=== PATIENT | female | born 1950 | race Caucasian/White ===

== ENCOUNTER 2020-02-21 09:47 | Day surgery (SDC) | payer MEDICARE, BC, OTHER ==
[~2020-02-21 09:47] MED LIST: Lidocaine 1%/Sod Bicarbonate in NS 8.4% 1 ML Syringe IDERM PRN; Sodium Chloride 0.9% 10 ML Syringe FLUSH PRN
[2020-02-21] MEDS: Lactated Ringers 1,000 ML IV SCH ×2 (09:50→20:06)
[2020-02-21] MEDS ORDERED: Scopolamine 1.5 MG Transdermal Patch TRDERM PRN (10:11)
[2020-02-21] MEDS ORDERED: Bupivacaine 0.5%/EPINEPHrine 1:200,000 50 ML MDV ONE (10:12)
[2020-02-21] MEDS ORDERED: Lidocaine 1% with EPINEPHrine 1:100,000 20 ML MDV ONE (10:12)
--- NOTE | 2020-02-21 10:18 | PCM.PREANE ---
Preanesthetic Assessment - Anesthesia/Transfusion/Family Hx Anesthesia History: Prior Anesthesia Reaction Type of Anesthesia Reaction: Other (see below) (PONV) Family History of Anesthesia Reaction: No Transfusion History: No Prior Transfusion(s) - Review of Systems General: No Symptoms Pulmonary: Shortness of Breath Cardiovascular: No Symptoms Gastrointestinal: No Symptoms Neurological: Headache Other: Reports: None - Physical Assessment NPO Status Date: 02/20/20 NPO Status Time: 23:30 Vital Signs: Last Vital Signs Temp 36.4 C 02/21/20 09:45 Pulse 63 02/21/20 09:45 Resp 16 02/21/20 09:45 BP 139/72 02/21/20 09:45 Pulse Ox 94 L 02/21/20 09:45 Height: 1.55 m Weight: 83.007 kg ASA Class: 2 Airway Class: Mallampati = 3 Dentition: Reports: Normal Dentition, Partial (upper) Thyro-Mental Finger Breadths: 2 Mouth Opening Finger Breadths: 3 ROM/Head Extension: Full Lungs: Clear to Auscultation, Normal Respiratory Effort Cardiovascular: Regular Rate, Regular Rhythm - Lab Values: Laboratory Last Values COVID-19 PCR Not detected (NOT DETECT) 02/19/20 13:15 - Allergies Allergies/Adverse Reactions: Allergies Allergy/AdvReac Type Severity Reaction Status Date / Time hydrocodone Allergy Cannot Verified 02/21/20 10:12 Remember Latex, Natural Rubber Allergy Itching Verified 02/21/20 10:12 codeine AdvReac Vomiting Verified 02/21/20 10:12 fluvastatin sodium AdvReac Nausea Verified 02/21/20 10:12 [From Lescol] - Acknowledgements Anesthesia Type Planned: General Anesthesia Pt an Appropriate Candidate for the Planned Anesthesia: Yes Alternatives and Risks of Anesthesia Discussed w Pt/Guardian: Yes Pt/Guardian Understands and Agrees with Anesthesia Plan: Yes PreAnesthesia Questionnaire HEENT History: Reports: Other (See Below) Other HEENT History: larygoscopy with dilation, wears glasses Cardiovascular History: Reports: High Cholesterol Respiratory History: Reports: Asthma, SOB, Other (See Below) Other Respiratory History: right lung nodule Gastrointestinal History: Reports: GERD Genitourinary History: Reports: Other (See Below) Other Genitourinary History: stress urinary incontinence 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: Other (See Below) Other OB/BYN History: uterine fibroid, thickened endometrium Musculoskeletal History: Reports: Other (See Below) Other Musculoskeletal History: IT band syndrome to left Neurological History: Reports: Other (See Below) Other Neuro History: memory impairment, tremor Psychiatric History: Reports: Depression Endocrine/Metabolic History: Reports: Other (See Below) Other Endocrine/Metabolic History: thyroid nodule, goiter, thyroid biopsy Hematologic History: Reports: None Immunologic History: Reports: None Oncologic (Cancer) History: Reports: None - Past Surgical History Head Surgeries/Procedures: Reports: None HEENT Surgical History: Reports: Adenoidectomy, Tonsillectomy Cardiovascular Surgical History: Reports: None Respiratory Surgical History: Reports: None GI Surgical History: Reports: Appendectomy, Colonoscopy, EGD Female Surgical History: Reports: D&C, Tubal Ligation, Other (See Below) Other Female Surgeries/Procedures: laparoscopy Endocrine Surgical History: Reports: None Neurological Surgical History: Reports: None Oncologic Surgical History: Reports: None Dermatological Surgical History: Reports: Other (See Below) - SUBSTANCE USE Smoking Status *Q: Former Smoker Recreational Drug Use History: No - HOME MEDS Home Medications: Home Meds Bilberry Fruit Extract [Bilberry Extract] 60 mg PO DAILY 11/17/14 [History] Calcium Carbonate [Calcium] 1 tab PO BID 11/17/14 [History] Cetirizine [ZyrTEC] 10 mg PO QPM PRN 11/17/14 [History] Fish Oil/[place]-3 Fatty Acids [Fish Oil] 1 each PO BID 11/17/14 [History] Flaxseed Oil [Flaxseed] 1,000 mg PO BID 11/17/14 [History] Melatonin 1 mg PO QPM 11/17/14 [History] Multivitamin with Minerals [Multiple Vitamin] 1 tab PO BID 11/17/14 [History] Ubidecarenone [Co Q-10 ER] 1 tab PO DAILY 11/17/14 [History] atorvaSTATin [Lipitor] 20 mg PO BEDTIME 11/17/14 [History] Albuterol [Proair HFA] 1 - 2 puff INH Q4H PRN 02/20/20 [History] Cholecalciferol (Vitamin D3) [Vitamin D3] 2,000 unit PO DAILY 02/20/20 [History] FLUoxetine [PROzac] 40 mg PO QAM 02/20/20 [History] Menthol/Zinc Oxide [Calmoseptine] 1 dose TOP BID PRN 02/20/20 [History] Omeprazole Magnesium [Prilosec Otc] 20 mg PO DAILY 02/20/20 [History] - CURRENT (IN HOUSE) MEDS Current Meds: Current Medications Lactated Ringer's (Ringers, Lactated) 1,000 mls @ 125 mls/hr IV ASDIRECTED ROBERT Stop: 02/21/20 23:00 Last Admin: 02/21/20 09:50 Dose: 125 mls/hr Documented by: Lidocaine/Sodium Bicarbonate (Buffered Lidocaine 1% In Ns 8.4%) 0.25 ml IDERM ONETIME PRN PRN Reason: Prior to IV Start Stop: 02/21/20 18:00 Last Admin: 02/21/20 09:50 Dose: 0.25 ml Documented by: Scopolamine (Transderm-Scop) 1.5 mg TRDERM Q72H PRN PRN Reason: Nausea Sodium Chloride (Saline Flush) 10 ml FLUSH ASDIRECTED PRN PRN Reason: Keep Vein Open Stop: 02/21/20 18:00
[2020-02-21] MEDS ORDERED: Rocuronium 50 MG/5 ML Vial ONE (10:30)
[2020-02-21] MEDS ORDERED: Propofol 200 MG/20 ML SDV ONE (10:31)
[2020-02-21] MEDS ORDERED: Midazolam 1 MG/ML 2 ML SDV ONE (10:31)
[2020-02-21] MEDS ORDERED: fentaNYL 250 MCG/5 ML SDV ONE (10:31)
[2020-02-21] MEDS ORDERED: Succinylcholine/Sod PF 100 MG/5 ML SYRINGE IV ONE (10:39)
[2020-02-21] MEDS ORDERED: ceFAZolin 1 GM Vial ONE (11:24)
[2020-02-21] MEDS ORDERED: Ondansetron 4 MG/2 ML SDV ONE (11:34)
[2020-02-21] MEDS ORDERED: HYDROmorphone 0.5 MG/0.5 ML Syringe IVPUSH PRN (11:49)
[2020-02-21] MEDS ORDERED: fentaNYL 100 MCG/2 ML SDV IVPUSH PRN (11:49)
[2020-02-21] MEDS ORDERED: Ketorolac 15 MG/ML SDV ONE (12:05)
--- NOTE | 2020-02-21 12:12 | PCM.OPNOTE ---
- General Post-Op/Procedure Note Date of Surgery/Procedure: 02/21/20 Operative Procedure(s): Laparoscopic cholecystectomy Findings: normal gallbladder anatomy Pre Op Diagnosis: Symptomatic cholelithiasis Post-Op Diagnosis: Same Anesthesia Technique: General ET Tube Primary Surgeon: Cecelia Sandra Anesthesia Provider: Feliz Trinidad Pathology: Gallbladder with contents Fluid Replacement, Intraop: 1,600 Output, Urine Amount: 0 EBL in mLs: 5 Complications: None apparent Condition: Good
--- NOTE | 2020-02-21 12:17 | PCM.PRNOTE ---
- Free Text/Narrative Note: OPERATIVE REPORT Date of Surgery/Procedure: February 21, 2020 Operative Procedure(s): laparoscopic cholecystectomy Findings: Normal gallbladder anatomy Pre Op Diagnosis: Symptomatic cholelithiasis Post-Op Diagnosis: Same Anesthesia Technique: General ET Tube Primary Surgeon: Cecelia Sandra MD Anesthesia Provider: Feliz Trinidad CRNA Pathology: Gallbladder with contents Fluid Replacement, Intraop: 1600cc Output, Urine Amount: 0cc EBL: 5cc Drain/Tube Comments: None Indication for the procedure: The patient is a 69-year-old lady who presented to my office with symptoms of cholelithiasis. The patient was counseled for laparoscopic cholecystectomy, with possible conversion to open. After discussion of the risks of infection, bleeding and injury to the bile duct as well as increased complication from previous intra-abdominal surgery, the patient's consent was obtained. Description of the procedure: The patient presented to the outpatient holding area on the day of the procedure. The history and physical were verified and consent was present and on the chart. The patient was taken back to the operating room and placed in supine position on the operating table. SCD boots were placed and functional prior to the start of the procedure. Preoperative antibiotics were administered according to SCIP protocol, Ancef 2 g IV. A surgical timeout was performed. The patient then had induction of general anesthesia and was intubated without difficulty. The patient was prepped and draped in standard surgical fashion. We began by making an infraumbilical vertical incision and deepened this down through subcutaneous fat to the level of the fascia. This was grasped and incised. We bluntly entered through the peritoneum and a finger sweep was done. A stay suture of 0 Vicryl was placed in the fascia. The 12 mm balloon Guy port was then inserted into the abdomen and the balloon inflated. Insufflation was attached and we had appropriate opening pressures. The abdomen was then insufflated to 15 mmHg. We inserted a scope into the abdomen and inspected the area where we had entered. There was no evidence of injury to surrounding structures with no evidence of bile or bleeding. A TAP block was then performed using 1% lidocaine with epinephrine mixed with 0.5% bupivacaine with epinephrine. The patient was then positioned with head up and right side up to facilitate exposure of the gallbladder. We then proceeded with placing our additional ports. A 5mm port was placed in the epigastric region. Two additional 5mm ports placed under direct visualization in the right upper quadrant. Once we had sufficiently exposed the dome of the gallbladder. This was grasped and retracted cephalad. We proceeded with our dissection to expose the cystic duct and cystic artery. We did have a critical view. The cystic duct and artery were then clipped and cut using endoscopic scissors. We then proceeded to fully dissect the gallbladder off of the cystic plate using the Bovie device. The gallbladder was then placed in the Endo Catch bag and withdrawn towards the umbilical port. We then inspected the area of the dissection. A Ray-Jihan was inserted and the small amount of blood from dissection was blotted up. This was then promptly removed. There was no significant bleeding and hemostasis was achieved. We then desufflated the abdomen. The ports were then removed. The gallbladder was withdrawn through the umbilical port site. We then proceeded to close the umbilical port site using an 0 Vicryl stitch. We had good closure of the fascia. A superficial 4-0 monocryl suture was used to approximate the skin. The skin was covered with Dermabond surgical glue. The patient tolerated the procedure well and was extubated without difficulty. He was transported to the PACU in stable condition. All sponge, needle counts correct. I was scrubbed and actively participated in the entire procedure. No immediate complications noted. Complications: None apparent Condition: Good Cecelia Sandra MD General Surgery
--- NOTE | 2020-02-21 12:30 | PCM.POSTAN ---
POST ANESTHESIA ASSESSMENT - MENTAL STATUS Mental Status: Oriented, Somnolent - VITAL SIGNS Vital Signs: Last Vital Signs Temp 97 F 02/21/20 12:18 Pulse 63 02/21/20 09:45 Resp 21 H 02/21/20 12:18 BP 117/49 L 02/21/20 12:18 Pulse Ox 92 L 02/21/20 12:18 - RESPIRATORY Respiratory Status: Respiratory Rate WNL, Airway Patent, O2 Saturation Stable, Supplemental Oxygen - CARDIOVASCULAR CV Status: Pulse Rate WNL, Blood Pressure Stable - GASTROINTESTINAL GI Status: No Symptoms - PAIN Pain Score: 0 - POST OP HYDRATION Hydration Status: Adequate & Stable
[2020-02-21] MEDS ORDERED: diphenhydrAMINE 50 MG/ML SDV IVPUSH STA (13:01)
[2020-02-21] MEDS ORDERED: Metoclopramide 10 MG/2 ML SDV IVPUSH STA (13:02)
[2020-02-21] MEDS: diphenhydrAMINE 50 MG/ML SDV IVPUSH STA ×2 (13:15→20:28)
--- NOTE | 2020-02-21 14:00 | PCM48HPAN ---
Post Anesthesia Note - EVALUATION WITHIN 48HRS OF ANESTHETIC Vital Signs in Normal Range: Yes Patient Participated in Evaluation: Yes Respiratory Function Stable: Yes (supplemental O2 on NC) Airway Patent: Yes Cardiovascular Function Stable: Yes Hydration Status Stable: Yes Pain Control Satisfactory: Yes Nausea and Vomiting Control Satisfactory: Yes Mental Status Recovered: Yes (slightly somnlolent, easily arousable and A/A x4) Vital Signs: Last Vital Signs Temp 97 F 02/21/20 12:18 Pulse 63 02/21/20 09:45 Resp 14 02/21/20 13:30 BP 111/45 L 02/21/20 13:30 Pulse Ox 98 02/21/20 13:43 - COMMENTS/OBSERVATIONS Free Text/Narrative:: No apparent anesthesia complications. Patient is being transferred to an extended floor recovery prior to discharge home
[2020-02-21] MEDS ORDERED: Ondansetron 4 MG Tab.DIS PO PRN (14:26)
[2020-02-21] MEDS: traMADol 50 MG Tab PO PRN (20:23)
[2020-02-22] MEDS: traMADol 50 MG Tab PO PRN (03:45)
[2020-02-22 03:59] VITALS: BP 124/84
[2020-02-22 07:42] VITALS: PULSE 61
== END 2020-02-22 08:24 | disposition home or self-care (01) ==
LOC: JD.SDS 09:47 → JD.MS 14:47 → JD.SDS 02-22 08:24
PROVIDERS: ATTEND Surgery
DX: K80.10 Calculus of gallbladder with chronic cholecystitis without obstruction (principal); J45.20 Mild intermittent asthma, uncomplicated; K21.9 Gastro-esophageal reflux disease without esophagitis; F32.9 Major depressive disorder, single episode, unspecified; E78.00 Pure hypercholesterolemia, unspecified; Z11.59 Encounter for screening for other viral diseases; Z87.891 Personal history of nicotine dependence; Z88.5 Allergy status to narcotic agent; Z91.040 Latex allergy status; Z88.8 Allergy status to other drugs, medicaments and biological substances; Z79.899 Other long term (current) drug therapy
CPT/HCPCS: 47562; 88304; 94760; A9270; J0330; J0690; J1170; J1200; J1885; J2250; J2370; J2405; J2704; J2710; J2765; J3010; J3490; J7120; U0002; 00790

== ENCOUNTER 2020-07-05 12:13 | Emergency (ER) | payer MEDICARE, BC ==
[2020-07-05] MEDS ORDERED: Sodium Chloride 0.9% 10 ML Syringe FLUSH PRN ×2 (12:21→14:00)
[2020-07-05 12:30] VITALS: BP 181/96; PULSE 55
--- NOTE | 2020-07-05 12:42 | EDM.PDOC ---
ED HPI GENERAL MEDICAL PROBLEM - General Chief Complaint: Cardiovascular Problem Stated Complaint: HIGH BP/CHEST PAIN Time Seen by Provider: 07/05/20 12:22 Source of Information: Reports: Patient, RN Notes Reviewed History Limitations: Reports: No Limitations - History of Present Illness INITIAL COMMENTS - FREE TEXT/NARRATIVE: Patient is a 70-year-old female who presents to the ED for the evaluation of an elevated blood pressure and right-sided/right upper quadrant/epigastric discomfort. Patient noted that her blood pressure was mildly elevated last night at 148/71. She does note that she has been having increased pain in her right upper quadrant and epigastrium, this could be the cause of that. She went to her primary care provider, Dr. Mcdonald today for management, they sent her here for the evaluation. Patient notes that she does have nodule in her right lung, that she is scheduled for a PET scan on Wednesday. This has grown since the last time it was evaluated hence the PET scan. Patient notes that she had her gallbladder taken out in January of this year, and she has been having lingering discomfort to her right upper quadrant, but states she is having some pain shooting through to her back and kidneys. She notes that the pain is also radiating down into her abdomen which has been fairly uncommon for the pain. She notes this to be more of a pressure than a sharp pain, and has become concerned. She states she is mildly short of breath with this, but has not had a fevers or chills, cough, nausea or vomiting or diarrhea. Right Chest Pain Score (Numeric/FACES): 8 - Related Data Allergies Allergy/AdvReac Type Severity Reaction Status Date / Time hydrocodone Allergy Severe Cannot Verified 07/05/20 12:26 Remember Latex, Natural Rubber Allergy Severe Itching Verified 07/05/20 12:26 codeine AdvReac Severe Vomiting Verified 07/05/20 12:26 fluvastatin sodium AdvReac Severe Nausea Verified 07/05/20 12:26 [From Lescol] Home Meds: Home Meds Bilberry Fruit Extract [Bilberry Extract] 60 mg PO DAILY 11/17/14 [History] Calcium Carbonate [Calcium] 1 tab PO BID 11/17/14 [History] Cetirizine [ZyrTEC] 10 mg PO QPM PRN 11/17/14 [History] Fish Oil/[place]-3 Fatty Acids [Fish Oil] 1 each PO BID 11/17/14 [History] Flaxseed Oil [Flaxseed] 1,000 mg PO BID 11/17/14 [History] Melatonin 1 mg PO QPM 11/17/14 [History] Multivitamin with Minerals [Multiple Vitamin] 1 tab PO BID 11/17/14 [History] Ubidecarenone [Co Q-10 ER] 1 tab PO DAILY 11/17/14 [History] atorvaSTATin [Lipitor] 20 mg PO BEDTIME 11/17/14 [History] Albuterol [Proair HFA] 1 - 2 puff INH Q4H PRN 02/20/20 [History] Cholecalciferol (Vitamin D3) [Vitamin D3] 2,000 unit PO DAILY 02/20/20 [History] FLUoxetine [PROzac] 40 mg PO QAM 02/20/20 [History] Menthol/Zinc Oxide [Calmoseptine] 1 dose TOP BID PRN 02/20/20 [History] Omeprazole Magnesium [Prilosec Otc] 20 mg PO DAILY 02/20/20 [History] Docusate Sodium [Colace] 100 mg PO BID #60 cap 02/21/20 [Rx] Ibuprofen [Motrin] 600 mg PO Q6H PRN #30 tab 02/21/20 [Rx] traMADol [Ultram] 50 mg PO Q4H PRN #20 tab 02/21/20 [Rx] Past Medical History HEENT History: Reports: Other (See Below) Other HEENT History: larygoscopy with dilation, wears glasses Cardiovascular History: Reports: High Cholesterol, Hypertension Respiratory History: Reports: Asthma, Other (See Below), SOB Other Respiratory History: right lung nodule Gastrointestinal History: Reports: GERD Genitourinary History: Reports: Other (See Below) Other Genitourinary History: stress urinary incontinence 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 (See Below) 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: uterine fibroid, thickened endometrium Musculoskeletal History: Reports: Other (See Below) Other Musculoskeletal History: IT band syndrome to left Neurological History: Reports: Other (See Below) Other Neuro History: memory impairment, tremor Psychiatric History: Reports: Depression Endocrine/Metabolic History: Reports: Other (See Below) Other Endocrine/Metabolic History: thyroid nodule, goiter, thyroid biopsy - Past Surgical History HEENT Surgical History: Reports: Adenoidectomy, Tonsillectomy GI Surgical History: Reports: Appendectomy, Cholecystectomy (january 2020), Colonoscopy, EGD Female Surgical History: Reports: D&C, Other (See Below), Tubal Ligation Other Female Surgeries/Procedures: laparoscopy Social & Family History - Tobacco Use Tobacco Use Status *Q: Former Tobacco User Used Tobacco, but Quit: Yes Month/Year Tobacco Last Used: 30 yr - Caffeine Use Caffeine Use: Reports: Coffee, Soda - Recreational Drug Use Recreational Drug Use: No ED ROS GENERAL - Review of Systems Review Of Systems: Comprehensive ROS is negative, except as noted in HPI. ED EXAM, GENERAL - Physical Exam Exam: See Below Exam Limited By: No Limitations General Appearance: Alert, WD/WN, No Apparent Distress, Anxious (mildly) Respiratory/Chest: No Respiratory Distress, Lungs Clear, Normal Breath Sounds, No Accessory Muscle Use, Chest Non-Tender Cardiovascular: Normal Peripheral Pulses, Regular Rate, Rhythm, No Edema, No Murmur GI/Abdominal: Normal Bowel Sounds, Soft, No Distention, No Mass, Tender (RUQ/epigastrium but mildly tender all over) Extremities: Normal Inspection, Normal Capillary Refill Neurological: Alert, Oriented, Normal Cognition, No Motor/Sensory Deficits Psychiatric: Normal Affect, Normal Mood Skin Exam: Warm, Dry, Intact, Normal Color, No Rash #1 Interpretation EKG Date: 07/05/20 Time: 11:29 Rhythm: NSR Rate (Beats/Min): 56 [place]: Normal P-Wave: Present QRS: Normal ST-T: Normal QT: Normal Comparison: NA - No Prior EKG EKG Interpretation Comments: No obvious ischemia or acute ST changes noted, reviewed by myself and Dr. Davila. Course - Vital Signs Last Recorded V/S: Last Vital Signs Temp 98.2 F 07/05/20 12:28 Pulse 55 L 07/05/20 12:28 Resp 16 07/05/20 12:28 BP 181/96 H 07/05/20 12:28 Pulse Ox 99 07/05/20 12:28 - Orders/Labs/Meds Orders: Active Orders 24 hr Category Date Time Status EKG Documentation Completion [RC] STAT Care 07/05/20 12:21 Ordered Peripheral IV Care [RC] . DIRECTED Care 07/05/20 12:21 Ordered Sodium Chloride 0.9% [Saline Flush] Med 07/05/20 12:21 Ordered 10 ml FLUSH ASDIRECTED PRN Sodium Chloride 0.9% [Saline Flush] Med 07/05/20 14:00 Active 10 ml FLUSH ONETIME PRN Peripheral IV Insertion Adult [OM.PC] Stat Oth 07/05/20 12:21 Ordered Medication Orders Sodium Chloride (Saline Flush) 10 ml FLUSH ASDIRECTED PRN PRN Reason: Keep Vein Open Last Admin: 07/05/20 12:25 Dose: 10 ml Documented by: RORO Sodium Chloride (Saline Flush) 10 ml FLUSH ONETIME PRN PRN Reason: IV FLUSH Last Admin: 07/05/20 14:25 Dose: 10 ml Documented by: Labs: Laboratory Tests 07/05/20 07/05/20 07/05/20 Range/Units 12:35 12:35 12:35 WBC 6.58 (3.98-10.04) K/mm3 RBC 5.19 (3.98-5.22) M/mm3 Hgb 15.0 (11.2-15.7) gm/dl Hct 45.5 H (34.1-44.9) % MCV 87.7 (79.4-94.8) fl MCH 28.9 (25.6-32.2) pg MCHC 33.0 (32.2-35.5) g/dl RDW Std Deviation 43.4 (36.4-46.3) fL Plt Count 207 (182-369) K/mm3 MPV 9.6 (9.4-12.3) fl Neut % (Auto) 49.5 (34.0-71.1) % Lymph % (Auto) 35.9 (19.3-51.7) % [place] % (Auto) 11.7 (4.7-12.5) % Eos % (Auto) 2.4 (0.7-5.8) Baso % (Auto) 0.3 (0.1-1.2) % Neut # (Auto) 3.26 (1.56-6.13) K/mm3 Lymph # (Auto) 2.36 (1.18-3.74) K/mm3 [place] # (Auto) 0.77 H (0.24-0.36) K/mm3 Eos # (Auto) 0.16 (0.04-0.36) K/mm3 Baso # (Auto) 0.02 (0.01-0.08) K/mm3 PT 11.0 (9.7-12.0) SECONDS INR 1.03 APTT 24.5 (21.7-31.4) SECONDS Sodium 140 (136-145) mEq/L Potassium 4.0 (3.5-5.1) mEq/L Chloride 104 (98-107) mEq/L Carbon Dioxide 29 (21-32) mEq/L Anion Gap 11.0 (5-15) BUN 17 (7-18) mg/dL Creatinine 0.8 (0.55-1.02) mg/dL Est Cr Clr Drug Dosing 47.97 mL/min Estimated GFR (MDRD) > 60 (>60) mL/min BUN/Creatinine Ratio 21.3 H (14-18) Glucose 107 (83-115) mg/dL Calcium 9.9 (8.5-10.1) mg/dL Magnesium 2.0 (1.8-2.4) mg/dl Total Bilirubin 0.6 (0.2-1.0) mg/dL AST 21 (15-37) U/L ALT 35 (14-59) U/L Alkaline Phosphatase 77 (46-116) U/L Troponin I < 0.017 (0.00-0.056) ng/mL NT-Pro-B Natriuret Pep (0-125) pg/mL Total Protein 7.4 (6.4-8.2) g/dl Albumin 4.1 (3.4-5.0) g/dl Globulin 3.3 gm/dL Albumin/Globulin Ratio 1.2 (1-2) 07/05/20 Range/Units 12:35 WBC (3.98-10.04) K/mm3 RBC (3.98-5.22) M/mm3 Hgb (11.2-15.7) gm/dl Hct (34.1-44.9) % MCV (79.4-94.8) fl MCH (25.6-32.2) pg MCHC (32.2-35.5) g/dl RDW Std Deviation (36.4-46.3) fL Plt Count (182-369) K/mm3 MPV (9.4-12.3) fl Neut % (Auto) (34.0-71.1) % Lymph % (Auto) (19.3-51.7) % [place] % (Auto) (4.7-12.5) % Eos % (Auto) (0.7-5.8) Baso % (Auto) (0.1-1.2) % Neut # (Auto) (1.56-6.13) K/mm3 Lymph # (Auto) (1.18-3.74) K/mm3 [place] # (Auto) (0.24-0.36) K/mm3 Eos # (Auto) (0.04-0.36) K/mm3 Baso # (Auto) (0.01-0.08) K/mm3 PT (9.7-12.0) SECONDS INR APTT (21.7-31.4) SECONDS Sodium (136-145) mEq/L Potassium (3.5-5.1) mEq/L Chloride (98-107) mEq/L Carbon Dioxide (21-32) mEq/L Anion Gap (5-15) BUN (7-18) mg/dL Creatinine (0.55-1.02) mg/dL Est Cr Clr Drug Dosing mL/min Estimated GFR (MDRD) (>60) mL/min BUN/Creatinine Ratio (14-18) Glucose (83-115) mg/dL Calcium (8.5-10.1) mg/dL Magnesium (1.8-2.4) mg/dl Total Bilirubin (0.2-1.0) mg/dL AST (15-37) U/L ALT (14-59) U/L Alkaline Phosphatase (46-116) U/L Troponin I (0.00-0.056) ng/mL NT-Pro-B Natriuret Pep 122 (0-125) pg/mL Total Protein (6.4-8.2) g/dl Albumin (3.4-5.0) g/dl Globulin gm/dL Albumin/Globulin Ratio (1-2) Meds: Medications Generic Name Dose Route Start Last Admin Trade Name Freq PRN Reason Stop Dose Admin Sodium Chloride 10 ml 07/05/20 12:21 07/05/20 12:25 Saline Flush FLUSH 10 ml ASDIRECTED PRN Administration Keep Vein Open Sodium Chloride 10 ml 07/05/20 14:00 07/05/20 14:25 Saline Flush FLUSH 10 ml ONETIME PRN Administration IV FLUSH Discontinued Medications Generic Name Dose Route Start Last Admin Trade Name Pratibha PRN Reason Stop Dose Admin Diatrizoate Meglum/Diatrizoate Sod 120 ml 07/05/20 14:00 07/05/20 14:25 Gastrografin 37% PO 07/05/20 14:01 45 ml ONETIME ONE Administration Iopamidol 50 ml 07/05/20 14:00 07/05/20 14:24 Isovue-300 (61%) IVPUSH 07/05/20 14:01 50 ml ONETIME ONE Administration Iopamidol 100 ml 07/05/20 14:00 07/05/20 14:24 Isovue-300 (61%) IVPUSH 07/05/20 14:01 100 ml ONETIME ONE Administration - Re-Assessments/Exams Free Text/Narrative Re-Assessment/Exam: 07/05/20 12:44 Patient presents to the ED for ongoing right-sided chest pressure and right upper quadrant pain. We will evaluate for cardiac etiology, and get abdomen CT for further evaluation. 07/05/20 13:11 Chest x-ray is unremarkable at this time. 07/05/20 13:46 Labs have come back and are fairly unremarkable, EKG was without concerning findings as well; reviewed by myself and Dr. Davila. 07/05/20 15:[address] is also unremarkable, no acute findings appreciated. Unfortunately I do not have a good reason as to what is causing her right abdomen pressure. I will have her follow-up with her primary care provider, for ongoing management. Departure - Departure Time of Disposition: 15:01 Disposition: Home, Self-Care 01 Condition: Good Clinical Impression: RUQ abdominal tenderness Qualifiers: Presence of rebound: absent Qualified Code(s): R10.811 - Right upper quadrant abdominal tenderness Referrals: Debbi Ferreira MD [Primary Care Provider] - Forms: ED Department Discharge Additional Instructions: You were evaluated in the ER today for your ongoing abdomen complaint/tenderness. A thorough evaluation was done to include labs, EKG, and abdomen pelvis CT with IV and oral contrast. All of these investigations came back unremarkable. There is no acute abnormalities appreciated at today's visit. Unfortunately this also means we do not have a great answer as to what is causing the abdomen pressure/discomfort that you are experiencing. I would recommend you follow-up with Dr. Mcdonald/your surgeon for further man agement regarding this pain. Please attend your PET scan next week for evaluation of the lung nodule. Please return to the ER at any time if symptoms change or worsen. Sepsis Event Note (ED) - Evaluation Sepsis Screening Result: No Definite Risk - Focused Exam Vital Signs: Vital Signs Temp Pulse Resp BP Pulse Ox 07/05/20 12:28 98.2 F 55 L 16 181/96 H 99 - My Orders Last 24 Hours: My Active Orders 07/05/20 12:21 EKG Documentation Completion [RC] STAT Peripheral IV Care [RC] . DIRECTED Sodium Chloride 0.9% [Saline Flush] 10 ml FLUSH ASDIRECTED PRN Peripheral IV Insertion Adult [OM.PC] Stat 07/05/20 14:00 Sodium Chloride 0.9% [Saline Flush] 10 ml FLUSH ONETIME PRN - Assessment/Plan Last 24 Hours: My Active Orders 07/05/20 12:21 EKG Documentation Completion [RC] STAT Peripheral IV Care [RC] . DIRECTED Sodium Chloride 0.9% [Saline Flush] 10 ml FLUSH ASDIRECTED PRN Peripheral IV Insertion Adult [OM.PC] Stat 07/05/20 14:00 Sodium Chloride 0.9% [Saline Flush] 10 ml FLUSH ONETIME PRN
--- NOTE | 2020-07-05 12:52 | CR ---
Chest: Portable view of the chest was obtained. Comparison: No prior chest imaging is available. Findings: Heart and mediastinum: Heart and mediastinum are within normal limits for portable technique. No mediastinal mass is seen. Lungs: Lungs are clear with no acute parenchymal change. No pleural effusion or thickening is seen. Osseous: Mild scoliosis is noted with mild endplate spurring. No acute osseous finding is seen. Impression: 1. Nothing acute is appreciated. Diagnostic code #2
[2020-07-05] MEDS ORDERED: Iopamidol 612 MG/ML 100 ML Bottle IVPUSH ONE (14:00)
[2020-07-05] MEDS ORDERED: Iopamidol 612 MG/ML 50 ML SDV IVPUSH ONE (14:00)
[2020-07-05] MEDS ORDERED: Diatrizoate Meglumine/Diatrizoate Sodium 37% 120 ML Bottle PO ONE (14:00)
--- NOTE | 2020-07-05 14:57 | CT ---
CT abdomen and pelvis Technique multiple axial sections were obtained through the abdomen and pelvis. Intravenous and oral contrast was given. Reconstructed coronal and sagittal images were obtained. Delayed images were also obtained through the bladder. Comparison: Previous CT abdomen and pelvis study of 07/18/20. Findings: Lung bases: Visualized lung bases show nothing acute. Liver: 2 very small low density findings are seen within the liver. These are most likely due to minimal cysts and are partially seen on prior study. No additional abnormality is seen within the liver. Surgical clips are seen from prior cholecystectomy. Spleen: Spleen size is normal. Kidneys: Kidneys show normal enhancement. No discrete renal abnormalities are appreciated. Delayed images show contrast within the distal ureters and bladder. Pancreas: Pancreas shows no discrete abnormality. Aorta and retroperitoneum: Aorta shows no aneurysm. No retroperitoneal adenopathy is seen. Mesenteric: No abnormalities are appreciated within the mesentery. Appendix: No appendix is seen. Pelvis: Sigmoid diverticuli are seen. No evidence of diverticulosis. No pelvic mass or adenopathy is seen. Osseous: Degenerative change is seen primarily at L5-S1 with severe disc space narrowing and vacuum phenomena. Joint space narrowing is noted within the right hip. No acute osseous finding is appreciated. Impression: 1. Findings as described above. 2. Nothing acute is appreciated on CT study of the abdomen and pelvis. Diagnostic code #2
== END 2020-07-05 15:30 | disposition home or self-care (01) ==
LOC: JD.ED 12:13
DX: R10.811 Right upper quadrant abdominal tenderness (principal); E78.00 Pure hypercholesterolemia, unspecified; I10 Essential (primary) hypertension; J45.909 Unspecified asthma, uncomplicated; K21.9 Gastro-esophageal reflux disease without esophagitis; F32.9 Major depressive disorder, single episode, unspecified; Z79.899 Other long term (current) drug therapy; Z88.8 Allergy status to other drugs, medicaments and biological substances; Z88.5 Allergy status to narcotic agent; Z91.040 Latex allergy status; Z87.891 Personal history of nicotine dependence
CPT/HCPCS: 36415; 71045; 71045-26; 74177; 74177-26; 80053; 83735; 83880; 84484; 85025; 85610; 85730; 93005; 93010; 99284; 99284-25; Q9963; Q9967

== ENCOUNTER 2023-05-04 12:56 | Emergency (ER) | payer MEDICARE, BC ==
[2023-05-04 13:29] LABS: APPEARANCE,URINE CLEAR (Clear); BILIRUBIN,URINE NEGATIVE (Negative); COLOR,URINE DARK YELLOW (Yellow); GLUCOSE,URINE NEGATIVE (Negative); KETONES,URINE NEGATIVE (Negative); LEUKOCYTE ESTERASE,URINE NEGATIVE (Negative); NITRITE,URINE NEGATIVE (Negative); OCCULT BLOOD,URINE NEGATIVE (Negative); PROTEIN,URINE NEGATIVE (Negative); UROBILINOGEN,URINE 0.2 (0.2-1.0)
[2023-05-04] MEDS ORDERED: Nitroglycerin 0.3 MG Tab.SL SL ONE (13:38)
[2023-05-04 13:46] LABS: BASOPHILS PERCENT AUTO 0.5 % (0.0-1.0); EOSINOPHILS ABSOLUTE AUTO 0.1 K/mm3 (0.0-0.4); EOSINOPHILS PERCENT AUTO 2.1 % (0.0-6.0); HEMATOCRIT 43.5 % (37.0-47.0); HEMOGLOBIN 14.5 gm/dl (12.0-16.0); IMMATURE GRAN ABSOLUTE AUTO 0.02 K/mm3 (0.00-0.05); IMMATURE GRAN PERCENT AUTO 0.3 % (0.0-0.4); LYMPHOCYTES ABSOLUTE AUTO 1.7 K/mm3 (1.0-4.8); LYMPHOCYTES PERCENT AUTO 27.7 % (24.0-44.0); MEAN CORPUSCULAR HEMOGLOBIN 29.3 pg (28.0-32.0); MEAN CORPUSCULAR HGB CONC 33.3 g/dl (32.0-36.0); MEAN CORPUSCULAR VOLUME 87.9 fl (83.0-99.0); MEAN PLATELET VOLUME 9.3 fl (9.4-12.3); MONOCYTES ABSOLUTE AUTO 0.6 K/mm3 (0.0-0.8); MONOCYTES PERCENT AUTO 9.1 % (0.0-8.0); NEUTROPHILS ABSOLUTE AUTO 3.8 K/mm3 (1.8-7.7); NEUTROPHILS PERCENT AUTO 60.3 % (41.0-71.0); PLATELET COUNT,PLT 214 K/mm3 (150-400); RED BLOOD CELL COUNT 4.95 M/mm3 (4.10-5.30); WHITE BLOOD CELL COUNT,WBC 6.24 K/mm3 (3.9-11.3)
[2023-05-04 13:58] LABS: INR 1.01; PROTHROMBIN TIME 10.8 SECONDS (9.7-12.0)
[2023-05-04 13:59] LABS: PTT,PARTIAL THROMBOPLSTIN TIME 25.5 SECONDS (21.7-31.4)
[2023-05-04 14:09] LABS: A/G RATIO 1.1 (1-2); ALANINE AMINOTRANSFERASE,ALT 26 U/L (14-59); ALBUMIN 3.8 g/dl (3.4-5.0); ALKALINE PHOSPHATASE 75 U/L (46-116); ANION GAP 11.6 (5-15); ASPARTATE AMNIOTRANSFERASE,AST 20 U/L (15-37); BILIRUBIN TOTAL 0.6 mg/dL (0.2-1.0); BLOOD UREA NITROGEN,BUN 13 mg/dL (7-18); BUN/CREATININE RATIO 16.3 (14-18); CALCIUM 9.3 mg/dL (8.5-10.1); CARBON DIOXIDE,CO2 29 mEq/L (21-32); CHLORIDE,CL 103 mEq/L (98-107); CREATININE 0.8 mg/dL (0.55-1.02); ESTIMATED GFR 77 mL/min (>60); GLUCOSE RANDOM 112 mg/dL (70-99); LIPASE 35 U/L (16-77); POTASSIUM,K 3.6 mEq/L (3.5-5.1); PROTEIN TOTAL,TP 7.2 g/dl (6.4-8.2); SODIUM,NA 140 mEq/L (136-145); TROPONIN I HIGH SENSITIVITY 6 pg/mL (<=51)
[2023-05-04] MEDS ORDERED: Nitroglycerin 0.4 MG Tab.SL ONE (17:12)
[2023-05-04 22:05] VITALS: BP 177/77; PULSE 55
== END 2023-05-04 18:04 | disposition home or self-care (01) ==
LOC: JD.ED 12:56
DX: R07.89 Other chest pain (principal); R06.02 Shortness of breath; I10 Essential (primary) hypertension; J45.909 Unspecified asthma, uncomplicated; E78.00 Pure hypercholesterolemia, unspecified; K21.9 Gastro-esophageal reflux disease without esophagitis; Z79.899 Other long term (current) drug therapy; Z88.5 Allergy status to narcotic agent; Z91.040 Latex allergy status; Z88.8 Allergy status to other drugs, medicaments and biological substances
CPT/HCPCS: 36415; 71045; 71045-26; 80053; 81003; 83690; 84484; 85025; 85610; 85730; 93010; 99283; 99285